=== PATIENT | male | born 1995 | race Caucasian/White ===

== ENCOUNTER 2018-11-05 12:03 | Emergency (ER) | payer BC ==
[2018-11-05 12:58] VITALS: BP 136/65
--- NOTE | 2018-11-05 13:32 | UC ---
Knee Pain HPI - HPI Summary HPI Summary: right knee pain x 3 days injury to his right knee , his leg went through the porch no significant pain at the time , sever pain the day after the injury pain is 4 out of 10 now , worse with walking , better with rest, no swelling, - History of Current Complaint Chief Complaint: UCLowerExtremity Stated Complaint: RIGHT KNEE PAIN Time Seen by Provider: 11/05/18 13:14 Hx Obtained From: Patient Onset/Duration: Sudden Onset, Lasting Days - 3, Still Present Severity Initially: Moderate Severity Currently: Moderate Pain Intensity: 4 Character: Aching Aggravating Factor(s): Movement, Weight Bearing, Stairs Associated Signs And Symptoms: Negative: Swelling, Redness, Bruising, Fever, Weakness, Numbness, Tingling Able to Bear Weight: Yes - Allergies/Home Medications Allergies/Adverse Reactions: Allergies Allergy/AdvReac Type Severity Reaction Status Date / Time No Known Allergies Allergy Verified 11/05/18 12:53 Home Medications: Home Medications Cetirizine* [ZyrTEC 10 MG TAB*] 10 mg PO DAILY 11/05/18 [History Confirmed 11/05] PMH/Surg Hx/FS Hx/Imm Hx Previously Healthy: Yes - Surgical History Surgical History: None - Family History Known Family History: Negative: Diabetes - Social History Alcohol Use: Occasionally Substance Use Type: Marijuana Substance Use Comment - Amount & Last Used: frequent use Smoking Status (MU): Current Some Day Smoker Type: Cigarettes Amount Used/How Often: with drinking Review of Systems All Other Systems Reviewed And Are Negative: Yes Constitutional: Positive: Negative Skin: Positive: Negative Eyes: Positive: Negative ENT: Positive: Negative Is Patient Immunocompromised?: No Physical Exam Triage Information Reviewed: Yes Appearance: Well-Appearing, No Pain Distress, Well-Nourished Vital Signs: Initial Vital Signs Temp 98.8 F 11/05/18 12:53 Pulse 74 11/05/18 12:53 Resp 18 11/05/18 12:53 BP 136/65 11/05/18 12:53 Pulse Ox 100 11/05/18 12:53 Vital Signs Reviewed: Yes Eye Exam: Normal Eyes: Positive: Conjunctiva Clear ENT: Positive: Normal ENT inspection, Hearing grossly normal, Pharynx normal Neck: Positive: Supple, Nontender, No Lymphadenopathy Respiratory: Positive: Chest non-tender, Lungs clear, Normal breath sounds Cardiovascular: Positive: RRR, No Murmur, Pulses Normal Musculoskeletal: Positive: Other: - right knee: no effusion , no swelling, diffuse tenderness, limited ROM due to pain , stabel ligaments Diagnostics - Laboratory Lab Results: right knee xray report: no fracture noted Knee Pain Course/Dx - Differential Dx/Diagnosis Provider Diagnosis: Sprain of right knee Discharge ED - Sign-Out/Discharge Documenting (check all that apply): Patient Departure All imaging exams completed and their final reports reviewed: Yes - Discharge Plan Condition: Stable Disposition: HOME Patient Education Materials: Knee Pain (ED) Referrals: No Primary Care Phys,NOPCP [Primary Care Provider] - 7 Days - Billing Disposition and Condition Condition: STABLE Disposition: Home
== END 2018-11-05 13:52 | disposition home or self-care (01) ==
LOC: UCCORT 12:03
DX: S83.91XA Sprain of unspecified site of right knee, initial encounter (principal); W13.8XXA Fall from, out of or through other building or structure, initial encounter; Y92.9 Unspecified place or not applicable; F17.210 Nicotine dependence, cigarettes, uncomplicated
CPT/HCPCS: 99201; G0463